=== PATIENT | female | born 1980 | race Caucasian/White ===

== ENCOUNTER → 2016-03-09 | Outpatient (CLI) | payer OTHER ==
--- NOTE | 2016-03-09 08:44 | REP ---
Transvaginal pelvic ultrasound 03/09/2016 Indication: Infertility Comparison: Transvaginal pelvic ultrasound 02/26/2016 Findings: Uterus measures 8.9 x 4.5 x 6.3 cm. Endometrium 8.9 mm thickness. There is a 1.9 mm endometrial calcification and few myometrial cysts, largest 3.8 mm maximal dimension. Uterine echotexture and endometrium are heterogeneous. Small submucosal fibroid cannot be completely excluded. There is no free fluid in cul-de-sac. Right ovary measures 2.3 x 1.3 x 1.3 cm and contains 6 sub cm follicles ranging from 1.1-2.5 mm size. Left ovary measures 2.8 x 1.7 x 1.9 cm contains a single dominant follicle greater than 10 mm size, measuring 11.1 x 8.1 mm dimension. Additionally there are two sub cm left ovarian follicles ranging from 2.3-4.1 mm size. Impression: Heterogeneous endometrium 8.9 mm in thickness. There is a 1.9 mm endometrial calcification, and few tiny myometrial cysts, largest 3.8 mm diameter. A small submucosal fibroid cannot be completely excluded as endometrium is heterogeneous with slightly indistinct margins. Single dominant left ovarian follicle measuring 11.1 x 8.1 mm size. Two sub centimeter left and six subcentimeter right ovarian follicles No free fluid in cul-de-sac Signed by Carmen Grimaldo MD 03/09/2016 08:35 A
[2016-03-09 08:45] LABS: PROGESTERONE 0.3 NG/ML
[2016-03-09 08:46] LABS: ESTRADIOL 407.8 PG/ML; LUTEINIZING HORMONE 0.5 mIU/mL
== END | disposition home or self-care (01) ==
LOC: M RAD 07:25
PROVIDERS: ATTEND Obstetrics & Gynecology Reproductive Endocrinology
DX: E28.9 Ovarian dysfunction, unspecified (principal); R93.8 Abnormal findings on diagnostic imaging of other specified body structures; N85.8 Other specified noninflammatory disorders of uterus

== ENCOUNTER → 2016-03-18 | Outpatient (CLI) | payer OTHER ==
[2016-03-18 13:28] LABS: PROGESTERONE 19.2 NG/ML
[2016-03-18 13:29] LABS: ESTRADIOL 672.2 PG/ML
== END | disposition home or self-care (01) ==
LOC: M LAB 12:15
PROVIDERS: ATTEND Obstetrics & Gynecology Reproductive Endocrinology
DX: N97.9 Female infertility, unspecified (principal)

== ENCOUNTER → 2016-03-25 | Outpatient (CLI) | payer OTHER ==
[2016-03-25 08:05] LABS: HCG, SERUM QUANTITATIVE < 1.0 MIU/ML
[2016-03-25 09:19] LABS: PROGESTERONE 41.8 NG/ML
== END | disposition home or self-care (01) ==
LOC: M LAB 07:18
PROVIDERS: ATTEND Obstetrics & Gynecology Reproductive Endocrinology
DX: Z32.00 Encounter for pregnancy test, result unknown (principal)

== ENCOUNTER → 2016-04-20 | Outpatient (CLI) | payer OTHER ==
--- NOTE | 2016-04-20 16:24 | REP ---
LEFT KNEE, FIVE VIEWS: HISTORY: Pain. There is no acute fracture or dislocation. The joint spaces are normal in appearance IMPRESSION: There is no acute fracture or dislocation. Signed by Landno Macdonald MD 04/20/2016 04:29 P
--- NOTE | 2016-04-20 16:25 | REP ---
Chest two views HISTORY: Rib sprain Comparison: None The lungs are clear. The heart is normal in size. The pulmonary vasculature is normal in appearance. The bony structure is intact. IMPRESSION: No acute disease. Signed by Landon Macdonald MD 04/20/2016 04:16 P
== END ==
LOC: M RAD 15:47
PROVIDERS: ATTEND Physician Assistant Medical
DX: M25.562 Pain in left knee (principal)

== ENCOUNTER → 2016-05-12 | Outpatient (CLI) | payer OTHER ==
--- NOTE | 2016-05-12 16:53 | REP ---
THYROID ULTRASOUND: Real-time sonographic evaluation of the thyroid was performed. Right lobe measures 3.7 x 1.4 x 1.3 cm and the left lobe 3.9 x 1.3 x 1.3 cm. Both lobes are diffusely heterogenous in echotexture. Two solid appearing nodules are seen in the right lower pole, measuring 1.4 x 0.9 x 0.8 cm and 8 x 4 x 7 mm. Solid nodule in the left lower pole measures 3 mm. Cystic structure posterior to the left lobe measures 7 x 3 x 5 mm. A few tiny calcifications are seen in the larger nodule in the right lower pole. IMPRESSION: Bilateral thyroid nodules. The dominant nodule in the right lower pole measures 1.4 x 0.9 x 0.8 cm and contains a few tiny calcifications. Recommend ultrasound guided fine-needle aspiration. Signed by Harshad Gatica MD 05/12/2016 04:57 P
== END ==
LOC: M RAD 14:47
PROVIDERS: ATTEND Physician Assistant Medical
DX: E03.9 Hypothyroidism, unspecified (principal)

== ENCOUNTER → 2016-06-03 | Outpatient (CLI) | payer OTHER ==
[2016-06-03 12:13] LABS: BASO % 0.4 % (0.0-1.0); EOS # 0.2 K/mm3 (0.0-0.50); EOS % 2.2 % (0.0-3.0); LYMPH % 32.7 % (24.0-44.0); MEAN CORPUSCULAR HEMOGLOBIN 30.2 pg (27.0-33.0); MEAN CORPUSCULAR HGB CONC 32.6 g/dl (32.0-36.5); MEAN CORPUSCULAR VOLUME 92.4 fl (80.0-96.0); MONO # 0.4 K/mm3 (0.0-0.8); MONO % 4.9 % (0.0-5.0); NEUTROPHILS # 5.3 K/mm3 (1.8-7.7); NEUTROPHILS % 58.5 % (36.0-66.0); RED CELL DISTRIBUTION WIDTH 13.2 % (11.5-14.5)
[2016-06-03 12:48] LABS: ALBUMIN 3.4 GM/DL (3.2-5.2); ALBUMIN/GLOBULIN RATIO 0.85 (1.00-1.93); ALKALINE PHOSPHATASE 119 U/L (45-117); ALT/SGPT 25 U/L (12-78); ANION GAP 5 MEQ/L (8-16); AST/SGOT 19 U/L (15-37); BILIRUBIN,TOTAL 0.6 MG/DL (0.2-1.0); BLOOD UREA NITROGEN 11 MG/DL (7-18); CALCIUM LEVEL 9.4 MG/DL (8.5-10.1); CARBON DIOXIDE LEVEL 31 MEQ/L (21-32); CHLORIDE LEVEL 103 MEQ/L (98-107); CHOLESTEROL LEVEL 200 MG/DL (<200); CREATININE FOR GFR 0.81 MG/DL (0.55-1.02); GLOMERULAR FILTRATION RATE > 60.0 (>60); GLUCOSE, FASTING 100 MG/DL (70-105); POTASSIUM SERUM 4.6 MEQ/L (3.5-5.1); SODIUM LEVEL 139 MEQ/L (136-145); TOTAL PROTEIN 7.4 GM/DL (6.4-8.2); TRIGLYCERIDES LEVEL 273 MG/DL (<150)
== END ==
LOC: M LAB 11:38
PROVIDERS: ATTEND Physician Assistant Medical
DX: I10 Essential (primary) hypertension (principal)

== ENCOUNTER → 2016-07-07 | Outpatient (REF) | payer OTHER | LOC: M LAB REF 15:51 | PROVIDERS: ATTEND Internal Medicine Endocrinology, Diabetes & Metabolism | DX: E04.1 Nontoxic single thyroid nodule (principal) ==

== ENCOUNTER → 2016-08-12 | Outpatient (CLI) | payer OTHER ==
[2016-08-12 12:01] LABS: ESTRADIOL 24.1 PG/ML; LUTEINIZING HORMONE 15.8 mIU/mL; PROGESTERONE 0.3 NG/ML
== END ==
LOC: M LAB 08:14
PROVIDERS: ATTEND Obstetrics & Gynecology Reproductive Endocrinology
DX: E28.9 Ovarian dysfunction, unspecified (principal)

== ENCOUNTER → 2016-08-12 | Outpatient (CLI) | payer OTHER ==
--- NOTE | 2016-08-12 09:12 | REP ---
Timing pelvic ultrasound, transvaginal imaging for follicle analysis: Right ovary: The right ovary is normal size measuring 1.9 and 1.4 x 2.2 cm. There are no follicles greater than 10 mm. There are three follicles in the 3-5 mm range. Left ovary: The left ovary is normal size measuring 2.0 x 1.2 x 1.4 cm. There are no follicles greater than 10 mm. There are three follicles in the 2-4 mm range. The uterus is anteverted and normal size measuring 7143 0.6 x 4.7 cm. The endometrium measures 2.3 mm with a heterogeneous appearance. There is a 4 mm endometrial cyst. A few small endometrial calcifications are noted. There is no free fluid in the pelvis. Signed by Harshad Merlos MD 08/12/2016 09:04 A
== END ==
LOC: M RAD 08:05
PROVIDERS: ATTEND Obstetrics & Gynecology Reproductive Endocrinology
DX: E28.9 Ovarian dysfunction, unspecified (principal); N85.4 Malposition of uterus; N85.8 Other specified noninflammatory disorders of uterus

== ENCOUNTER → 2016-08-15 | Outpatient (CLI) | payer OTHER ==
--- NOTE | 2016-08-15 08:55 | REP ---
TRANSVAGINAL PELVIC ULTRASOUND, FOLLICLE STUDY: Real-time sonographic evaluation of the pelvis performed utilizing transvaginal technique. The uterus measures 8.1 x 3.9 x 4.8 cm. Endometrial thickness is 10 mm. Two tiny cystic structures are again seen in the endometrium measuring approximately 3 mm in diameter. Right ovary measures 2.0 x 1.6 x 1.8 cm. There are four subcentimeter follicles between 3-5 mm in diameter with no follicles greater than 1 cm in diameter. Left ovary measures 2.1 x 1.3 x 1.6 cm with seven subcentimeter follicles up to 4 mm in diameter and no follicles greater than 1 cm in diameter. No free fluid is seen. Signed by Harshad Gatica MD 08/15/2016 05:10 P
[2016-08-15 09:25] LABS: PROGESTERONE < 0.2 NG/ML
[2016-08-15 09:26] LABS: ESTRADIOL 32.9 PG/ML; LUTEINIZING HORMONE 18.4 mIU/mL
== END ==
LOC: M RAD 08:03
PROVIDERS: ATTEND Obstetrics & Gynecology Reproductive Endocrinology
DX: E28.9 Ovarian dysfunction, unspecified (principal)

== ENCOUNTER → 2016-08-17 | Outpatient (CLI) | payer OTHER ==
[2016-08-17 11:24] LABS: PROGESTERONE 0.3 NG/ML
[2016-08-17 11:25] LABS: ESTRADIOL 61.6 PG/ML; LUTEINIZING HORMONE 11.4 mIU/mL
== END ==
LOC: M LAB 09:58
PROVIDERS: ATTEND Obstetrics & Gynecology Reproductive Endocrinology
DX: E28.9 Ovarian dysfunction, unspecified (principal)

== ENCOUNTER → 2016-08-17 | Outpatient (CLI) | payer OTHER ==
[2016-08-17 11:24] LABS: ALBUMIN 3.4 GM/DL (3.2-5.2); ALBUMIN/GLOBULIN RATIO 0.83 (1.00-1.93); ALKALINE PHOSPHATASE 117 U/L (45-117); ALT/SGPT 30 U/L (12-78); ANION GAP 5 MEQ/L (8-16); AST/SGOT 17 U/L (15-37); BASO % 0.7 % (0.0-1.0); BILIRUBIN,TOTAL 0.4 MG/DL (0.2-1.0); BLOOD UREA NITROGEN 13 MG/DL (7-18); CALCIUM LEVEL 9.1 MG/DL (8.5-10.1); CARBON DIOXIDE LEVEL 30 MEQ/L (21-32); CHLORIDE LEVEL 105 MEQ/L (98-107); CHOLESTEROL LEVEL 189 MG/DL (<200); EOS # 0.2 K/mm3 (0.0-0.50); EOS % 2.2 % (0.0-3.0); FERRITIN 35 NG/ML (8-252); GLOMERULAR FILTRATION RATE > 60.0 (>60); GLUCOSE, FASTING 124 MG/DL (70-105); LYMPH # 2.2 K/mm3 (1.5-4.5); LYMPH % 30.2 % (24.0-44.0); MEAN CORPUSCULAR HEMOGLOBIN 30.2 pg (27.0-33.0); MEAN CORPUSCULAR HGB CONC 32.8 g/dl (32.0-36.5); MEAN CORPUSCULAR VOLUME 92.2 fl (80.0-96.0); MONO # 0.3 K/mm3 (0.0-0.8); MONO % 3.9 % (0.0-5.0); NEUTROPHILS # 4.3 K/mm3 (1.8-7.7); NEUTROPHILS % 61.5 % (36.0-66.0); POTASSIUM SERUM 4.3 MEQ/L (3.5-5.1); SODIUM LEVEL 140 MEQ/L (136-145); TOTAL PROTEIN 7.5 GM/DL (6.4-8.2); TRIGLYCERIDES LEVEL 265 MG/DL (<150)
[2016-08-18 13:02] LABS: ALBUMIN 3.91 GM/DL (3.29-5.55); ALBUMIN % 52.1 % (55.8-66.1); GAMMA GLOBULIN % 17.1 % (11.1-18.8)
[2016-08-19 00:07] LABS: Lyme Disease IgG/IgM Antibodie <0.91 ISR (0.00-0.90); Lyme Disease IgM Ab Quantitati <0.80 index (0.00-0.79); SJOGREN'S ANTI SS-A <0.2 AI (0.0-0.9); SJOGREN'S ANTI SS-B <0.2 AI (0.0-0.9)
== END ==
LOC: M LAB 09:48
PROVIDERS: ATTEND Physician Assistant Medical
DX: R53.83 Other fatigue (principal); E78.2 Mixed hyperlipidemia

== ENCOUNTER → 2016-08-19 | Outpatient (REF) | payer OTHER ==
[2016-08-19 15:28] LABS: LUTEINIZING HORMONE 13.9 mIU/mL; PROGESTERONE 0.3 NG/ML
[2016-08-19 15:29] LABS: ESTRADIOL 90.5 PG/ML
== END ==
LOC: M LAB REF 14:43
PROVIDERS: ATTEND Obstetrics & Gynecology Reproductive Endocrinology
DX: E28.9 Ovarian dysfunction, unspecified (principal)

== ENCOUNTER → 2016-08-23 | Outpatient (CLI) | payer OTHER ==
--- NOTE | 2016-08-23 16:41 | REP ---
Pelvic ultrasound, endovaginal imaging: Right ovary: There are no follicles greater than 10 mm. There are five follicles in the 2.2-4.2 mm size range. Right ovary is normal size measuring 1.7 x 1.2 x 1.8 cm. There are no masses. Left ovary: There are no follicles greater than 10 mm. There are eight follicles in the 1.8-3.4 mm size range. The left ovary is normal size measuring 1.8-1.2 x 1.8 cm. There are no masses. The uterus is anteverted, however the fundus is slightly retroflexed. The uterus is normal size measuring 8.0 x 3.9 x 5.0 cm. The endometrium is not thickened measuring 9.5 mm. The endometrium has a heterogeneous echotexture and a small calcification and two small endometrial cysts are identified. Signed by Harshad Merlos MD 08/23/2016 04:33 P
[2016-08-23 17:48] LABS: ESTRADIOL 74.9 PG/ML; LUTEINIZING HORMONE 24.9 mIU/mL; PROGESTERONE 0.9 NG/ML
== END ==
LOC: M RAD 16:00 → M LAB 16:00
PROVIDERS: ATTEND Obstetrics & Gynecology Reproductive Endocrinology
DX: E28.9 Ovarian dysfunction, unspecified (principal); N85.8 Other specified noninflammatory disorders of uterus; N85.4 Malposition of uterus

== ENCOUNTER → 2016-09-09 | Outpatient (CLI) | payer OTHER ==
--- NOTE | 2016-09-09 08:53 | REP ---
Clinical: Infertility. Technique: Transvaginal ultrasound examination. Findings: Heterogeneous anteverted uterus measures 8.3 x 4.2 x 5.2 cm and again demonstrates multiple small myometrial cysts measuring up to 5 mm diameter. Trace endocervical fluid is identified. No pelvic free fluid or adnexal mass lesion. Right ovary measures 2.1 x 1.4 x 2.2 cm with three subcentimeter follicles. Left ovary measures 2.2 x 2.7 x 2.6 cm three sub centimeter follicles. Impression: Heterogeneous anteverted uterus with small cysts. No free fluid or adnexal mass lesion. Few subcentimeter bilateral follicles. Signed by Juliocesar Laurent MD 09/09/2016 08:44 A
[2016-09-09 10:29] LABS: ESTRADIOL 202.4 PG/ML; LUTEINIZING HORMONE 8.8 mIU/mL; PROGESTERONE 0.4 NG/ML
== END ==
LOC: M LAB 07:21 → M RAD 07:21
PROVIDERS: ATTEND Obstetrics & Gynecology Reproductive Endocrinology
DX: E28.9 Ovarian dysfunction, unspecified (principal); N85.4 Malposition of uterus; N85.8 Other specified noninflammatory disorders of uterus

== ENCOUNTER → 2016-09-13 | Outpatient (CLI) | payer OTHER ==
[2016-09-13 17:12] LABS: ESTRADIOL 68.1 PG/ML; LUTEINIZING HORMONE 6.1 mIU/mL; PROGESTERONE 0.2 NG/ML
--- NOTE | 2016-09-13 18:08 | REP ---
HISTORY: Fertility scan. Transvaginal ultrasonography was performed. The uterus measures 8.3 x 3.9 x 4.8 cm. The endometrial echo complex measures 1.4 cm in thickness. The right ovary measures 2.6 x 1.7 x 1.6 cm. There are two follicles in the 5.2 to 5.3 mm range. The left ovary measures 2.1 x 1.8 x 2 cm. There is one follicle measuring 7.3 mm. IMPRESSION: Ovarian follicle study as described above. Signed by Usman Shankar DO 09/13/2016 06:28 P
== END ==
LOC: M LAB 16:07 → M RAD 16:07
PROVIDERS: ATTEND Obstetrics & Gynecology Reproductive Endocrinology
DX: E28.9 Ovarian dysfunction, unspecified (principal)

== ENCOUNTER → 2016-09-23 | Outpatient (CLI) | payer OTHER ==
--- NOTE | 2016-09-23 08:42 | REP ---
Obstetric ultrasound, transvaginal imaging for follicle analysis: Right ovary: There is one follicle greater than 10 mm measuring up to 11.9 mm. There is There is one follicle measuring 3.9 mm. The right ovary is normal size measuring 2.4 x 1.6 x 2.4 cm. Left ovary There is one follicle greater than 10 mm measuring up to 19.7 mm. There is one follicle measuring 4.8 mm. Left ovary is normal size measuring 2.7 x 2.3 x 2.7 cm. The uterus is anteverted and normal size measuring 8.73 0.7 x 5.0 cm. There is a subserosal/submucosal fibroid in the anterior myometrium measuring 2.2 x 1.9 x 1.8 cm. The endometrium has a uniformly echogenic appearance and is not trilaminar. Signed by Harshad Merlos MD 09/23/2016 08:34 A
[2016-09-23 09:13] LABS: HCG, SERUM QUANTITATIVE < 1.0 MIU/ML
[2016-09-23 09:21] LABS: PROGESTERONE 0.3 NG/ML
[2016-09-23 09:22] LABS: LUTEINIZING HORMONE 6.5 mIU/mL
[2016-09-23 09:23] LABS: ESTRADIOL 53.9 PG/ML; FOLLICLE STIMULATING HORMONE 10.9 mIU/mL
== END ==
LOC: M RAD 07:28
PROVIDERS: ATTEND Obstetrics & Gynecology Reproductive Endocrinology
DX: N97.9 Female infertility, unspecified (principal)

== ENCOUNTER → 2016-10-07 | Outpatient (CLI) | payer OTHER ==
[2016-10-07 11:39] LABS: ESTRADIOL 429.7 PG/ML; LUTEINIZING HORMONE 4.1 mIU/mL; PROGESTERONE 3.5 NG/ML
== END ==
LOC: M LAB 10:20
PROVIDERS: ATTEND Obstetrics & Gynecology Reproductive Endocrinology
DX: N97.9 Female infertility, unspecified (principal)

== ENCOUNTER → 2016-10-21 | Outpatient (CLI) | payer OTHER ==
[2016-10-21 12:32] LABS: ALBUMIN 3.3 GM/DL (3.2-5.2); ALBUMIN/GLOBULIN RATIO 0.94 (1.00-1.93); ALKALINE PHOSPHATASE 96 U/L (45-117); ALT/SGPT 34 U/L (12-78); ANION GAP 7 MEQ/L (8-16); AST/SGOT 17 U/L (15-37); BILIRUBIN,TOTAL 0.5 MG/DL (0.2-1.0); BLOOD UREA NITROGEN 10 MG/DL (7-18); CALCIUM LEVEL 8.7 MG/DL (8.5-10.1); CARBON DIOXIDE LEVEL 28 MEQ/L (21-32); CHLORIDE LEVEL 107 MEQ/L (98-107); CHOLESTEROL LEVEL 160 MG/DL (<200); CREATININE FOR GFR 0.76 MG/DL (0.55-1.02); GLOMERULAR FILTRATION RATE > 60.0 (>60); GLUCOSE, FASTING 101 MG/DL (70-105); IMMUNOGLOBULIN G 1100 MG/DL (681-1648); IMMUNOGLOBULIN M 112 MG/DL (40-230); POTASSIUM SERUM 4.3 MEQ/L (3.5-5.1); SODIUM LEVEL 142 MEQ/L (136-145); TOTAL PROTEIN 6.8 GM/DL (6.4-8.2); TRIGLYCERIDES LEVEL 188 MG/DL (<150)
== END ==
LOC: M LAB 09:37
PROVIDERS: ATTEND Physician Assistant Medical
DX: L94.9 Localized connective tissue disorder, unspecified (principal); R73.9 Hyperglycemia, unspecified; E78.2 Mixed hyperlipidemia

== ENCOUNTER → 2016-11-01 | Outpatient (CLI) | payer OTHER ==
[2016-11-01 10:06] LABS: ESTRADIOL 324.8 PG/ML
== END ==
LOC: M LAB 06:39
PROVIDERS: ATTEND Obstetrics & Gynecology Reproductive Endocrinology
DX: N97.9 Female infertility, unspecified (principal)

== ENCOUNTER → 2016-11-07 | Outpatient (CLI) | payer OTHER ==
[2016-11-07 08:56] LABS: HCG, SERUM QUANTITATIVE < 1.0 MIU/ML
[2016-11-07 09:07] LABS: PROGESTERONE 36.9 NG/ML
== END ==
LOC: M LAB 06:34
PROVIDERS: ATTEND Obstetrics & Gynecology Reproductive Endocrinology
DX: N97.9 Female infertility, unspecified (principal)

== ENCOUNTER → 2017-02-22 | Outpatient (CLI) | payer OTHER, SELFPAY ==
[2017-02-22 09:19] LABS: BASO % 0.4 % (0.0-1.0); EOS # 0.1 10^3/uL (0.0-0.50); EOS % 1.8 % (0.0-3.0); IMMATURE GRANULOCYTE % 0.4 % (0-0); LYMPH # 2.2 10^3/uL (1.5-4.5); LYMPH % 28.5 % (24.0-44.0); MEAN CORPUSCULAR HGB CONC 33.2 g/dl (32.0-36.5); MEAN CORPUSCULAR VOLUME 90.3 fl (80.0-96.0); MONO # 0.5 10^3/uL (0.0-0.8); MONO % 6.5 % (0.0-5.0); NEUTROPHILS # 4.7 10^3/uL (1.8-7.7); NEUTROPHILS % 62.4 % (36.0-66.0); PLATELET COUNT, AUTOMATED 338 10^3/uL (150-450); RED CELL DISTRIBUTION WIDTH 13.2 % (11.5-14.5); WHITE BLOOD COUNT 7.6 10^3/uL (4.0-10.0)
[2017-02-22 10:12] LABS: ALBUMIN 3.3 GM/DL (3.2-5.2); ALBUMIN/GLOBULIN RATIO 0.83 (1.00-1.93); ALKALINE PHOSPHATASE 119 U/L (45-117); ALT/SGPT 29 U/L (12-78); ANION GAP 6 MEQ/L (8-16); AST/SGOT 18 U/L (7-37); BILIRUBIN,TOTAL 0.5 MG/DL (0.2-1.0); BLOOD UREA NITROGEN 11 MG/DL (7-18); CALCIUM LEVEL 8.7 MG/DL (8.5-10.1); CARBON DIOXIDE LEVEL 28 MEQ/L (21-32); CHLORIDE LEVEL 104 MEQ/L (98-107); CHOLESTEROL LEVEL 146 MG/DL (<200); CREATININE FOR GFR 0.72 MG/DL (0.55-1.02); GLOMERULAR FILTRATION RATE > 60.0 (>60); GLUCOSE, FASTING 115 MG/DL (70-105); GLUCOSE,RANDOM 115 MG/DL (LESS THAN 200); POTASSIUM SERUM 4.3 MEQ/L (3.5-5.1); SODIUM LEVEL 138 MEQ/L (136-145); TOTAL PROTEIN 7.3 GM/DL (6.4-8.2); TRIGLYCERIDES LEVEL 275 MG/DL (<150)
== END ==
LOC: M LAB 08:47
PROVIDERS: ATTEND Physician Assistant Medical
DX: R73.9 Hyperglycemia, unspecified (principal)

== ENCOUNTER 2017-07-20 19:10 | Emergency (ER) | payer SELFPAY ==
[2017-07-20] MEDS: AMOXICILLIN 500 MG CAP PO (19:54)
== END 2017-07-20 20:05 | disposition home or self-care (01) ==
LOC: M ED 19:10
DX: H66.91 Otitis media, unspecified, right ear (principal); K21.9 Gastro-esophageal reflux disease without esophagitis; E07.9 Disorder of thyroid, unspecified; Z79.899 Other long term (current) drug therapy; Z79.890 Hormone replacement therapy; F17.210 Nicotine dependence, cigarettes, uncomplicated
CPT/HCPCS: 99283

== ENCOUNTER → 2017-12-19 | Outpatient (REF) | payer OTHER, MEDICAID ==
[2017-12-19 23:22] LABS: CHLAMYDIA DNA AMPLIFICATION NEGATIVE (NEGATIVE); GC DNA AMPLIFICATION NEGATIVE (NEGATIVE)
[2017-12-20 10:21] LABS: HIV 1&2 SCREEN CENTAUR NEGATIVE (NEGATIVE)
[2017-12-22 14:21] LABS: HPV LOW VOL RFLX Negative (Negative)
== END ==
LOC: M LAB REF 18:52
DX: Z01.419 Encounter for gynecological examination (general) (routine) without abnormal findings (principal); Z11.3 Encounter for screening for infections with a predominantly sexual mode of transmission; Z11.51 Encounter for screening for human papillomavirus (HPV)
CPT/HCPCS: 86780

== ENCOUNTER → 2018-10-19 | Outpatient (REF) | payer OTHER ==
[~2018-10-19] MED LIST: AMOX500C PO; IBUP-1022 PO; LEVO125T4 PO; METHY25TA PO; OMEP40CA2 PO; VITA50005 PO
== END ==
LOC: M LAB REF 12:49
PROVIDERS: ATTEND Physician Assistant Medical
DX: R30.0 Dysuria (principal)

== ENCOUNTER → 2018-11-21 | Outpatient (REF) | payer OTHER ==
[~2018-11-21] MED LIST changes: -OMEP40CA2 PO; +OMEP40CA97 PO
[2018-11-21 11:09] LABS: BASO # 0.1 10^3/uL (0.0-0.2); BASO % 0.7 % (0.0-1.0); EOS # 0.2 10^3/uL (0.0-0.5); EOS % 1.8 % (0.0-3.0); HEMATOCRIT 48.6 % (36.0-47.0); HEMOGLOBIN 15.6 g/dl (12.0-15.5); LYMPH # 3.1 10^3/uL (1.5-5.0); LYMPH % 29.7 % (24.0-44.0); MEAN CORPUSCULAR HEMOGLOBIN 30.7 pg (27.0-33.0); MEAN CORPUSCULAR HGB CONC 32.1 g/dl (32.0-36.5); MEAN CORPUSCULAR VOLUME 95.7 fl (80.0-96.0); MONO # 0.5 10^3/uL (0.0-0.8); MONO % 5.1 % (0.0-5.0); NEUTROPHILS # 6.4 10^3/uL (1.5-8.5); NEUTROPHILS % 62.1 % (36.0-66.0); PLATELET COUNT, AUTOMATED 323 10^3/uL (150-450); RED BLOOD COUNT 5.08 10^6/uL (4.00-5.40); WHITE BLOOD COUNT 10.4 10^3/uL (4.0-10.0)
[2018-11-21 11:28] LABS: ALBUMIN 3.4 GM/DL (3.2-5.2); ALT/SGPT 23 U/L (12-78); BILIRUBIN,TOTAL 0.5 MG/DL (0.2-1.0); BLOOD UREA NITROGEN 9 MG/DL (7-18); CALCIUM LEVEL 9.3 MG/DL (8.5-10.1); CARBON DIOXIDE LEVEL 27 MEQ/L (21-32); CHLORIDE LEVEL 105 MEQ/L (98-107); CHOLESTEROL LEVEL 189 MG/DL (<200); CHOLESTEROL RISK RATIO 4.725 (<5); CREATININE FOR GFR 0.76 MG/DL (0.55-1.30); FREE T4 1.14 NG/DL (0.76-1.46); GLOMERULAR FILTRATION RATE > 60.0 (>60); GLUCOSE, FASTING 93 MG/DL (70-100); HDL CHOLESTEROL 40 MG/DL (>40); LDL CHOLESTEROL 110 MG/DL (<100); NON-HDL-C 149 MG/DL; POTASSIUM SERUM 4.7 MEQ/L (3.5-5.1); SODIUM LEVEL 139 MEQ/L (136-145); TOTAL 25(OH) VITAMIN D 64.4 NG/ML (30.0-100.0); TOTAL PROTEIN 7.1 GM/DL (6.4-8.2); TRIGLYCERIDES LEVEL 196 MG/DL (<150)
[2018-11-21 11:33] LABS: HEMOGLOBIN A1c 6.3 %
== END ==
LOC: M LAB REF 10:59
PROVIDERS: ATTEND Nurse Practitioner Family
DX: Z00.00 Encounter for general adult medical examination without abnormal findings (principal)

== ENCOUNTER → 2019-07-03 | Outpatient (CLI) | payer OTHER ==
[2019-07-03 14:30] LABS: HEMATOCRIT 45.3 % (36.0-47.0); MEAN CORPUSCULAR HEMOGLOBIN 31.6 pg (27.0-33.0); MEAN CORPUSCULAR HGB CONC 33.1 g/dl (32.0-36.5); MEAN CORPUSCULAR VOLUME 95.6 fl (80.0-96.0); PLATELET COUNT, AUTOMATED 360 10^3/uL (150-450); RED BLOOD COUNT 4.74 10^6/uL (4.00-5.40); WHITE BLOOD COUNT 7.2 10^3/uL (4.0-10.0)
[2019-07-03 14:45] LABS: FREE T4 1.47 NG/DL (0.76-1.46); THYROID STIMULATING HORMONE 0.579 uIU/ML (0.358-3.740)
== END ==
LOC: M PLALAB 10:22
PROVIDERS: ATTEND Obstetrics & Gynecology
DX: N93.9 Abnormal uterine and vaginal bleeding, unspecified (principal)

== ENCOUNTER → 2019-07-11 | Outpatient (CLI) | payer OTHER ==
--- NOTE | 2019-07-11 19:10 | REP ---
Clinical: Abnormal uterine bleeding. Technique: Transabdominal pelvic ultrasound followed by transvaginal examination for better evaluation of the endometrium and adnexa. Note: Examination is limited due to under distended bladder, excessive overlying bowel gas, and patient body habitus. Findings: Heterogeneous anteverted uterus measures 8.1 x 3.6 x 4.8 cm. Endometrial complex measures 7.9 mm thickness. A 1.6 cm presumed fibroid is suggested in the lower uterine segment. A complex cyst is noted in the fundal portion of the endometrium measuring 8 x 9 x 9 mm. Left ovary is normal and measures 1.7 x 1.3 x 1.0 cm. The right ovary measures 2.4 x 1.6 x 1.7 cm and includes 1.2 x 1.7 x 1.2 cm presumed physiologic cyst. No pelvic fluid or adnexal mass lesion. Impression: Heterogeneous uterus with presumed lower uterine segment fibroid and complex cyst within the fundal portion of the endometrium. Right ovarian cyst likely physiologic. Consider reevaluation in 4-6 weeks to evaluate for resolution.
== END ==
LOC: M WHC 14:02
PROVIDERS: ATTEND Obstetrics & Gynecology
DX: N85.8 Other specified noninflammatory disorders of uterus (principal); N83.291 Other ovarian cyst, right side; N93.9 Abnormal uterine and vaginal bleeding, unspecified

== ENCOUNTER → 2019-07-24 | Outpatient (REF) | payer OTHER, MEDICAID ==
[2019-07-24 13:14] LABS: BASO % 0.4 % (0.0-1.0); EOS # 0.2 10^3/uL (0.0-0.5); EOS % 1.6 % (0.0-3.0); HEMATOCRIT 45.2 % (36.0-47.0); HEMOGLOBIN 14.4 g/dl (12.0-15.5); LYMPH # 3.2 10^3/uL (1.5-5.0); LYMPH % 33.9 % (24.0-44.0); MEAN CORPUSCULAR HEMOGLOBIN 30.8 pg (27.0-33.0); MEAN CORPUSCULAR HGB CONC 31.9 g/dl (32.0-36.5); MEAN CORPUSCULAR VOLUME 96.8 fl (80.0-96.0); MONO # 0.7 10^3/uL (0.0-0.8); MONO % 7.1 % (0.0-5.0); NEUTROPHILS # 5.3 10^3/uL (1.5-8.5); NEUTROPHILS % 56.7 % (36.0-66.0); PLATELET COUNT, AUTOMATED 315 10^3/uL (150-450); RED BLOOD COUNT 4.67 10^6/uL (4.00-5.40); WHITE BLOOD COUNT 9.3 10^3/uL (4.0-10.0)
[2019-07-24 13:47] LABS: ALBUMIN 3.7 GM/DL (3.2-5.2); ALT/SGPT 25 U/L (12-78); BILIRUBIN,TOTAL 0.3 MG/DL (0.2-1.0); BLOOD UREA NITROGEN 16 MG/DL (7-18); CARBON DIOXIDE LEVEL 27 MEQ/L (21-32); CHLORIDE LEVEL 107 MEQ/L (98-107); CHOLESTEROL LEVEL 179 MG/DL (<200); CHOLESTEROL RISK RATIO 5.264 (<5); CREATININE FOR GFR 0.91 MG/DL (0.55-1.30); FREE T4 1.36 NG/DL (0.76-1.46); GLOMERULAR FILTRATION RATE > 60.0 (>60); GLUCOSE, FASTING 107 MG/DL (70-100); HDL CHOLESTEROL 34 MG/DL (>40); LDL CHOLESTEROL 98 MG/DL (<100); NON-HDL-C 145 MG/DL; POTASSIUM SERUM 4.2 MEQ/L (3.5-5.1); SODIUM LEVEL 141 MEQ/L (136-145); TOTAL PROTEIN 7.5 GM/DL (6.4-8.2); TRIGLYCERIDES LEVEL 236 MG/DL (<150)
[2019-07-24 13:48] LABS: TOTAL 25(OH) VITAMIN D 48.8 NG/ML (30.0-100.0)
[2019-07-24 13:54] LABS: HEMOGLOBIN A1c 6.9 %
== END ==
LOC: M LAB REF 12:56
PROVIDERS: ATTEND Family Medicine
DX: Z00.00 Encounter for general adult medical examination without abnormal findings (principal); E03.9 Hypothyroidism, unspecified; E78.00 Pure hypercholesterolemia, unspecified; R73.03 Prediabetes; I10 Essential (primary) hypertension

== ENCOUNTER → 2019-07-30 | Outpatient (REF) | payer OTHER, MEDICAID | LOC: M SFHCWAGY 09:39 | PROVIDERS: ATTEND Obstetrics & Gynecology | DX: N93.9 Abnormal uterine and vaginal bleeding, unspecified (principal) ==

== ENCOUNTER → 2019-09-30 | Outpatient (CLI) | payer OTHER ==
[~2019-09-30] MED LIST changes: +ATOR1TAB19 PO; +LISI10TA4 PO; +METF500T13 PO; +OXYB5TAB10 PO; +WELLTAB38 PO
--- NOTE | 2019-11-22 09:22 | ECGEPIP ---
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
== END ==
LOC: M EKG 11:41
PROVIDERS: ATTEND Anesthesiology
DX: Z01.818 Encounter for other preprocedural examination (principal); I10 Essential (primary) hypertension; E11.9 Type 2 diabetes mellitus without complications; G47.30 Sleep apnea, unspecified

== ENCOUNTER → 2020-03-16 | Outpatient (REF) | payer OTHER, MEDICAID ==
[2020-03-16 12:59] LABS: ALBUMIN 3.7 GM/DL (3.2-5.2); ALT/SGPT 23 U/L (12-78); BILIRUBIN,TOTAL 0.5 MG/DL (0.2-1.0); BLOOD UREA NITROGEN 13 MG/DL (7-18); CALCIUM LEVEL 9.6 MG/DL (8.5-10.1); CARBON DIOXIDE LEVEL 28 MEQ/L (21-32); CHLORIDE LEVEL 102 MEQ/L (98-107); CREATININE FOR GFR 0.92 MG/DL (0.55-1.30); GLOMERULAR FILTRATION RATE > 60.0 (>58); GLUCOSE, FASTING 140 MG/DL (70-100); POTASSIUM SERUM 4.9 MEQ/L (3.5-5.1); SODIUM LEVEL 138 MEQ/L (136-145); TOTAL PROTEIN 7.6 GM/DL (6.4-8.2)
[2020-03-16 15:14] LABS: HEMOGLOBIN A1c 7.2 %
== END ==
LOC: M LAB REF 11:11
PROVIDERS: ATTEND Physician Assistant
DX: E11.9 Type 2 diabetes mellitus without complications (principal); E78.00 Pure hypercholesterolemia, unspecified

== ENCOUNTER → 2020-03-24 | Outpatient (CLI) | payer SELFPAY ==
[~2020-03-24] MED LIST changes: +LISI10TA22 PO; -LISI10TA4 PO
== END ==
LOC: M LABSMTC 10:58
PROVIDERS: ATTEND Pediatrics
DX: Z20.822 Contact with and (suspected) exposure to COVID-19 (principal)

== ENCOUNTER → 2020-04-20 | Outpatient (CLI) | payer SELFPAY | LOC: M LABSMTC 12:07 | PROVIDERS: ATTEND Pediatrics | DX: Z20.822 Contact with and (suspected) exposure to COVID-19 (principal) ==

== ENCOUNTER → 2020-04-29 | Outpatient (CLI) | payer SELFPAY | LOC: M LABSMTC 10:24 | PROVIDERS: ATTEND Pediatrics | DX: Z20.822 Contact with and (suspected) exposure to COVID-19 (principal) ==

== ENCOUNTER → 2020-05-01 | Outpatient (REF) | LOC: M LABSMTC 11:58 | PROVIDERS: ATTEND Pediatrics | DX: Z11.52 Encounter for screening for COVID-19 (principal) ==

== ENCOUNTER → 2020-05-21 | Outpatient (REF) | payer OTHER, MEDICAID ==
[2020-05-21 11:34] LABS: BASO # 0.1 10^3/uL (0.0-0.2); BASO % 0.6 % (0.0-1.0); EOS # 0.1 10^3/uL (0.0-0.5); EOS % 1.7 % (0.0-3.0); HEMATOCRIT 43.3 % (36.0-47.0); HEMOGLOBIN 13.6 g/dl (12.0-15.5); LYMPH # 2.9 10^3/uL (1.5-5.0); LYMPH % 34.7 % (24.0-44.0); MEAN CORPUSCULAR HEMOGLOBIN 29.2 pg (27.0-33.0); MEAN CORPUSCULAR HGB CONC 31.4 g/dl (32.0-36.5); MEAN CORPUSCULAR VOLUME 93.1 fl (80.0-96.0); MONO # 0.6 10^3/uL (0.0-0.8); MONO % 7.3 % (2.0-8.0); NEUTROPHILS # 4.6 10^3/uL (1.5-8.5); NEUTROPHILS % 55.5 % (36.0-66.0); PLATELET COUNT, AUTOMATED 329 10^3/uL (150-450); RED BLOOD COUNT 4.65 10^6/uL (4.00-5.40); WHITE BLOOD COUNT 8.3 10^3/uL (4.0-10.0)
[2020-05-21 12:14] LABS: CHOLESTEROL RISK RATIO 4.823 (<5); FREE T4 1.23 NG/DL (0.76-1.46); THYROID STIMULATING HORMONE 1.83 uIU/ML (0.358-3.740)
== END ==
LOC: M LAB REF 10:56
PROVIDERS: ATTEND Physician Assistant
DX: R42 Dizziness and giddiness (principal); R74.8 Abnormal levels of other serum enzymes

== ENCOUNTER → 2020-05-25 | Outpatient (REF) | payer OTHER, MEDICAID ==
[2020-05-25 16:21] LABS: ALBUMIN 3.8 GM/DL (3.2-5.2); ALT/SGPT 26 U/L (12-78); BILIRUBIN,TOTAL 0.4 MG/DL (0.2-1.0); BLOOD UREA NITROGEN 13 MG/DL (7-18); CALCIUM LEVEL 9.9 MG/DL (8.5-10.1); CARBON DIOXIDE LEVEL 32 MEQ/L (21-32); CHLORIDE LEVEL 104 MEQ/L (98-107); CREATININE FOR GFR 0.81 MG/DL (0.55-1.30); GLOMERULAR FILTRATION RATE > 60.0 (>58); GLUCOSE, FASTING 171 MG/DL (70-100); POTASSIUM SERUM 4.6 MEQ/L (3.5-5.1); SODIUM LEVEL 139 MEQ/L (136-145); TOTAL PROTEIN 7.7 GM/DL (6.4-8.2)
[2020-05-25 16:29] LABS: TOTAL 25(OH) VITAMIN D 37.1 NG/ML (30.0-100.0)
[2020-05-25 17:04] LABS: MALB URINE SIEMENS 27.5 MG/L; MAU/CREAT RATIO 10.7 MCG/MG (0.0-30.0)
[2020-05-25 18:07] LABS: HEMOGLOBIN A1c 7.7 %
== END ==
LOC: M LAB REF 15:44
PROVIDERS: ATTEND Physician Assistant
DX: E11.9 Type 2 diabetes mellitus without complications (principal); E66.9 Obesity, unspecified

== ENCOUNTER → 2021-05-28 | Outpatient (CLI) | payer MEDICAID, OTHER ==
[~2021-05-28] MED LIST changes: +OMEP40CA4 PO; -OMEP40CA97 PO
[2021-05-28 09:53] LABS: HEMOGLOBIN 14.6 g/dl (12.0-15.5); MEAN CORPUSCULAR HEMOGLOBIN 29.4 pg (27.0-33.0); MEAN CORPUSCULAR HGB CONC 32.4 g/dl (32.0-36.5); MEAN CORPUSCULAR VOLUME 90.5 fl (80.0-96.0); PLATELET COUNT, AUTOMATED 337 10^3/uL (150-450); RED BLOOD COUNT 4.97 10^6/uL (4.00-5.40)
[2021-05-28 10:23] LABS: ALBUMIN 3.6 GM/DL (3.2-5.2); ALT/SGPT 34 U/L (12-78); BILIRUBIN,TOTAL 0.5 MG/DL (0.2-1.0); BLOOD UREA NITROGEN 15 MG/DL (7-18); CALCIUM LEVEL 9.5 MG/DL (8.5-10.1); CARBON DIOXIDE LEVEL 32 MEQ/L (21-32); CHLORIDE LEVEL 101 MEQ/L (98-107); CHOLESTEROL LEVEL 142 MG/DL (<200); CHOLESTEROL RISK RATIO 3.641 (<5); CREATININE FOR GFR 0.94 MG/DL (0.55-1.30); GLOMERULAR FILTRATION RATE > 60.0 (>58); GLUCOSE, FASTING 250 MG/DL (70-100); HDL CHOLESTEROL 39 MG/DL (>40); LDL CHOLESTEROL 65 MG/DL (<100); NON-HDL-C 103 MG/DL; POTASSIUM SERUM 4.3 MEQ/L (3.5-5.1); SODIUM LEVEL 136 MEQ/L (136-145); TOTAL PROTEIN 7.6 GM/DL (6.4-8.2); TRIGLYCERIDES LEVEL 189 MG/DL (<150)
[2021-05-28 10:56] LABS: HEMOGLOBIN A1c 10.7 %
[2021-05-28 11:57] LABS: HEPATITIS C VIRUS ABY INDEX 0.2 INDEX (<0.8)
[2021-05-28 11:58] LABS: HIV 1&2 SCREEN CENTAUR NEGATIVE (NEGATIVE)
== END ==
LOC: M LAB 09:12
PROVIDERS: ATTEND Physician Assistant
DX: Z11.59 Encounter for screening for other viral diseases (principal)

== ENCOUNTER → 2021-06-08 | Outpatient (REF) ==
[2021-06-08 12:29] LABS: RSV AMPLIFICATION NEGATIVE (NEGATIVE)
== END ==
LOC: M EMP 11:36
PROVIDERS: ATTEND Family Medicine
DX: Z11.52 Encounter for screening for COVID-19 (principal)

== ENCOUNTER → 2021-11-14 | Outpatient (REF) | LOC: M LABSMTC 10:00 | PROVIDERS: ATTEND Pediatrics | DX: Z00.00 Encounter for general adult medical examination without abnormal findings (principal) ==

== ENCOUNTER 2021-12-31 21:46 | Emergency (ER) | payer OTHER ==
[~2021-12-31] VITALS: Ht 160 cm; Wt 100.9 kg
[2022-01-01] MEDS ORDERED: LIDOCAINE 5% (LIDODERM) PATCH TD ONE (00:20)
[2022-01-01] MEDS ORDERED: traMADol 50 MG TAB PO ONE (00:20)
[2022-01-01] MEDS ORDERED: TRAM50TA2 PO (00:22)
[2022-01-01] MEDS ORDERED: CYCL5TAB PO (00:22)
[2022-01-01] MEDS ORDERED: LIDO5DIS41 TD (00:22)
[2022-01-01 00:33] VITALS: BP 138/88
== END 2022-01-01 00:35 | disposition home or self-care (01) ==
LOC: M ED 21:46
DX: R07.89 Other chest pain (principal); E11.9 Type 2 diabetes mellitus without complications; E03.9 Hypothyroidism, unspecified; E78.5 Hyperlipidemia, unspecified; F32.A Depression, unspecified; K21.9 Gastro-esophageal reflux disease without esophagitis; Z79.899 Other long term (current) drug therapy; Z79.84 Long term (current) use of oral hypoglycemic drugs

== ENCOUNTER → 2022-01-06 | Outpatient (CLI) | payer OTHER ==
[~2022-01-06] MED LIST changes: +CYCL5TAB PO; +LIDO5DIS41 TD; +TRAM50TA2 PO
== END ==
LOC: M WHC 10:50
PROVIDERS: ATTEND Physician Assistant
DX: R92.2 Inconclusive mammogram (principal); R92.8 Other abnormal and inconclusive findings on diagnostic imaging of breast

== ENCOUNTER 2022-01-22 13:42 | Emergency (ER) | payer OTHER ==
[~2022-01-22] VITALS: Ht 160 cm; Wt 100.0 kg
[2022-01-22] MEDS ORDERED: CYCLOBENZAPRINE 10MG TABLET PO ONE (17:30)
[2022-01-22] MEDS ORDERED: KETOROLAC TROMETHAMINE 10 MG TAB PO ONE (17:30)
[2022-01-22] MEDS ORDERED: IBUP80TA PO (17:41)
[2022-01-22] MEDS ORDERED: CYCL-707 PO (17:41)
[2022-01-22 18:08] VITALS: BP 142/94
== END 2022-01-22 18:27 | disposition home or self-care (01) ==
LOC: M ED 17:20
DX: S29.011A Strain of muscle and tendon of front wall of thorax, initial encounter (principal); W00.0XXA Fall on same level due to ice and snow, initial encounter; E03.9 Hypothyroidism, unspecified; I10 Essential (primary) hypertension; K21.9 Gastro-esophageal reflux disease without esophagitis; F17.200 Nicotine dependence, unspecified, uncomplicated; Z79.890 Hormone replacement therapy; Z79.899 Other long term (current) drug therapy

== ENCOUNTER → 2022-01-26 | Outpatient (REF) ==
[~2022-01-26] MED LIST changes: +CYCL-707 PO; +IBUP80TA PO
[2022-01-26 13:16] LABS: RSV AMPLIFICATION NEGATIVE (NEGATIVE)
== END ==
LOC: M LABSMTC 11:18
PROVIDERS: ATTEND Family Medicine
DX: Z11.52 Encounter for screening for COVID-19 (principal)

== ENCOUNTER → 2022-02-03 | Outpatient (REF) | payer OTHER ==
[2022-02-03 16:44] LABS: APPEARANCE, URINE MANUAL CLEAR (CLEAR); COLOR, URINE MANUAL YELLOW (YELLOW)
[2022-02-03 16:46] LABS: BILIRUBIN, URINE MANUAL NEGATIVE (NEGATIVE); BLOOD URINE MANUAL NEGATIVE (NEGATIVE); GLUCOSE, URINE (UA) MANUAL NEGATIVE (NEGATIVE); KETONE, URINE MANUAL NEGATIVE (NEGATIVE); LEUKOCYTE ESTERASE, URINE MAN TRACE (NEGATIVE); NITRITE, URINE MANUAL NEGATIVE (NEGATIVE); PROTEIN, URINE MANUAL NEGATIVE (NEGATIVE); SPECIFIC GRAVITY,URINE MANUAL 1.025 (1.002-1.035); UROBILINOGEN, URINE MANUAL NORMAL (NORMAL)
[2022-02-03 17:24] LABS: BACTERIA, URINE SMALL AMOUNT; SQUAMOUS EPITHELIAL CELL URINE LARGE AMOUNT /hpf (SMALL AMT)
[2022-02-03 17:25] LABS: HYALINE CAST, URINE NONE SEEN /lpf (0-1); MUCUS, URINE LARGE AMOUNT (NEGATIVE)
== END ==
LOC: M LAB REF 16:32
PROVIDERS: ATTEND Physician Assistant
DX: N39.0 Urinary tract infection, site not specified (principal)

== ENCOUNTER → 2022-04-27 | Outpatient (REF) ==
[2022-04-27 13:31] LABS: RSV AMPLIFICATION NEGATIVE (NEGATIVE)
== END ==
LOC: M LABSMTC 09:18
PROVIDERS: ATTEND Family Medicine
DX: Z11.59 Encounter for screening for other viral diseases (principal)

== ENCOUNTER → 2022-05-05 | Outpatient (REF) | payer OTHER ==
[2022-05-05 16:58] LABS: CREATININE, URINE 144.4 MG/DL; MAU/CREAT RATIO 5.5 MCG/MG (0.0-30.0)
== END ==
LOC: M LAB REF 16:10
PROVIDERS: ATTEND Physician Assistant
DX: E11.65 Type 2 diabetes mellitus with hyperglycemia (principal)

== ENCOUNTER → 2022-06-29 | Outpatient (CLI) | payer OTHER ==
[2022-06-29 11:34] LABS: BLOOD UREA NITROGEN 12 MG/DL (9-23); CALCIUM LEVEL 9.9 MG/DL (8.5-10.1); CARBON DIOXIDE LEVEL 30 MMOL/L (20-31); CHLORIDE LEVEL 102 MMOL/L (98-107); CHOLESTEROL LEVEL 117 MG/DL (<200); CHOLESTEROL RISK RATIO 2.77 (<5); CREATININE FOR GFR 0.84 MG/DL (0.55-1.30); GLOMERULAR FILTRATION RATE > 60.0 (>58); GLUCOSE, FASTING 97 MG/DL (60-100); HDL CHOLESTEROL 42.2 MG/DL (>40); NON-HDL-C 74.8 MG/DL; POTASSIUM SERUM 4.1 MMOL/L (3.5-5.1); SODIUM LEVEL 137 MMOL/L (136-145); TRIGLYCERIDES LEVEL 144 MG/DL (<150)
[2022-06-29 11:35] LABS: THYROID STIMULATING HORMONE 0.665 uIU/ML (0.55-4.78)
== END ==
LOC: M LAB 10:01
PROVIDERS: ATTEND Physician Assistant
DX: E03.9 Hypothyroidism, unspecified (principal); E78.00 Pure hypercholesterolemia, unspecified; E11.65 Type 2 diabetes mellitus with hyperglycemia

== ENCOUNTER → 2022-07-27 | Outpatient (REF) | payer OTHER | LOC: M LAB REF 22:15 | PROVIDERS: ATTEND Physician Assistant | DX: J02.9 Acute pharyngitis, unspecified (principal) ==

== ENCOUNTER → 2022-09-14 | Outpatient (CLI) | payer OTHER | LOC: M WHC 09:07 | PROVIDERS: ATTEND Physician Assistant | DX: Z12.31 Encounter for screening mammogram for malignant neoplasm of breast (principal) ==

== ENCOUNTER → 2023-04-18 | Outpatient (CLI) | payer OTHER ==
[~2023-04-18] MED LIST changes: -OXYB5TAB10 PO; +OXYB5TAB11 PO
[2023-04-18 09:50] LABS: BLOOD UREA NITROGEN 11 MG/DL (9-23); CALCIUM LEVEL 9.4 MG/DL (8.5-10.1); CARBON DIOXIDE LEVEL 29 MMOL/L (20-31); CHLORIDE LEVEL 104 MMOL/L (98-107); CHOLESTEROL LEVEL 117 MG/DL (<200); CHOLESTEROL RISK RATIO 2.83 (<5); CREATININE FOR GFR 0.61 MG/DL (0.55-1.30); GLOMERULAR FILTRATION RATE > 60.0 (>58); GLUCOSE, FASTING 124 MG/DL (60-100); HDL CHOLESTEROL 41.3 MG/DL (>40); LDL CHOLESTEROL 48.7 MG/DL (<100); NON-HDL-C 75.7 MG/DL; SODIUM LEVEL 137 MMOL/L (136-145); TRIGLYCERIDES LEVEL 135 MG/DL (<150)
[2023-04-18 09:54] LABS: THYROID STIMULATING HORMONE 0.748 uIU/ML (0.55-4.78)
== END ==
LOC: M LAB 08:22
PROVIDERS: ATTEND Physician Assistant
DX: E03.9 Hypothyroidism, unspecified (principal)

== ENCOUNTER → 2023-06-23 | Outpatient (REF) ==
[~2023-06-23] MED LIST changes: -OXYB5TAB11 PO; +OXYB5TAB14 PO
== END ==
LOC: M EMP 14:25
PROVIDERS: ATTEND Family Medicine
DX: Z01.89 Encounter for other specified special examinations (principal)

== ENCOUNTER → 2023-08-31 | Outpatient (CLI) | payer OTHER | LOC: M WHC 07:56 | PROVIDERS: ATTEND Physician Assistant | DX: Z12.31 Encounter for screening mammogram for malignant neoplasm of breast (principal) ==

== ENCOUNTER → 2023-11-20 | Outpatient (REF) | payer OTHER ==
[2023-11-20 17:25] LABS: CREATININE, URINE 189.4 MG/DL; MAU/CREAT RATIO 2.6 MCG/MG (0.0-30.0)
== END ==
LOC: M LAB REF 16:26
PROVIDERS: ATTEND Physician Assistant
DX: E11.65 Type 2 diabetes mellitus with hyperglycemia (principal)

== ENCOUNTER → 2024-01-18 | Outpatient (REF) | payer OTHER ==
[~2024-01-18] MED LIST changes: -CYCL5TAB PO; +CYCL5TAB4 PO
[2024-01-18 17:36] LABS: APPEARANCE, URINE HAZY (CLEAR); BACTERIA, URINE AUTO 1+ (NEGATIVE); BILIRUBIN, URINE AUTO NEGATIVE (NEGATIVE); BLOOD, URINE BLOOD 2+ (NEGATIVE); COLOR, URINE YELLOW (YELLOW); GLUCOSE, URINE (UA) AUTO NEGATIVE (NEGATIVE); KETONE, URINE AUTO NEGATIVE (NEGATIVE); LEUKOCYTE ESTERASE, URINE AUTO 3+ (NEGATIVE); NITRITE, URINE AUTO NEGATIVE (NEGATIVE); PROTEIN, URINE AUTO NEGATIVE (NEGATIVE); RBC, URINE AUTO 7 /HPF (0-3); SPECIFIC GRAVITY URINE AUTO 1.006 (1.002-1.035); SQUAMOUS EPITHELIAL CELL UR AU 1 /HPF (0-6); UROBILINOGEN, URINE AUTO 0.2 mg/dL (0.0-2.0); WBC, URINE AUTO 149 /HPF (0-3)
== END ==
LOC: M LAB REF 16:43
PROVIDERS: ATTEND Physician Assistant Medical
DX: N39.0 Urinary tract infection, site not specified (principal)

== ENCOUNTER 2024-02-02 09:39 | Emergency (ER) | payer OTHER ==
[~2024-02-02] VITALS: Ht 160 cm; Wt 93.5 kg
[2024-02-02 11:08] VITALS: BP 114/77; TEMP 97.1; O2SAT 96
== END 2024-02-02 11:35 | disposition home or self-care (01) ==
LOC: M ED 09:39
DX: Z11.1 Encounter for screening for respiratory tuberculosis (principal); K21.9 Gastro-esophageal reflux disease without esophagitis; E03.9 Hypothyroidism, unspecified; Z79.1 Long term (current) use of non-steroidal anti-inflammatories (NSAID); Z79.84 Long term (current) use of oral hypoglycemic drugs; Z79.899 Other long term (current) drug therapy

== ENCOUNTER → 2024-02-13 | Outpatient (REF) | payer OTHER, MEDICAID ==
[2024-02-21 12:56] LABS: HPV APTIMA NOT DETECTED (NOT DETECT)
== END ==
LOC: M LAB REF 17:06
PROVIDERS: ATTEND Physician Assistant
DX: Z12.4 Encounter for screening for malignant neoplasm of cervix (principal); Z11.3 Encounter for screening for infections with a predominantly sexual mode of transmission

== ENCOUNTER → 2024-09-20 | Outpatient (REF) | payer OTHER, MEDICAID ==
[~2024-09-20] MED LIST changes: +LIDO1ADH93 TD; -LIDO5DIS41 TD
== END ==
LOC: M LAB REF 16:57
PROVIDERS: ATTEND Nurse Practitioner Family
DX: Z53.9 Procedure and treatment not carried out, unspecified reason (principal)

== ENCOUNTER → 2024-09-24 | Outpatient (REF) | payer OTHER, MEDICAID ==
[2024-09-24 18:39] LABS: CREATININE, URINE 105.5 MG/DL
[2024-09-24 18:40] LABS: MALB URINE SIEMENS < 3.0 MG/L
[2024-09-24 18:48] LABS: PLATELET COUNT, AUTOMATED 321 10^3/uL (150-450)
[2024-09-24 18:53] LABS: FREE T4 1.37 NG/DL (0.89-1.76)
[2024-09-24 18:55] LABS: ALT/SGPT 22 U/L (7.0-40); AST/SGOT 22 U/L (<34); CALCIUM LEVEL 10.0 MG/DL (8.5-10.1); CARBON DIOXIDE LEVEL 26 MMOL/L (20-31); CHLORIDE LEVEL 105 MMOL/L (98-107); CHOLESTEROL LEVEL 116 MG/DL (<200); CHOLESTEROL RISK RATIO 2.67 (<5); CREATININE FOR GFR 0.79 MG/DL (0.55-1.30); GLOMERULAR FILTRATION RATE > 90.0 (>58); LDL CHOLESTEROL 38.5 MG/DL (<100); MAGNESIUM LEVEL 1.9 MG/DL (1.8-2.4); NON-HDL-C 72.7 MG/DL; POTASSIUM SERUM 4.5 MMOL/L (3.5-5.1); SODIUM LEVEL 142 MMOL/L (136-145); TRIGLYCERIDES LEVEL 171 MG/DL (<150)
== END ==
LOC: M LAB REF 16:59
PROVIDERS: ATTEND Nurse Practitioner Family
DX: E11.9 Type 2 diabetes mellitus without complications (principal); I10 Essential (primary) hypertension; I71.20 Thoracic aortic aneurysm, without rupture, unspecified; I51.7 Cardiomegaly; E78.00 Pure hypercholesterolemia, unspecified; E03.9 Hypothyroidism, unspecified

== ENCOUNTER → 2024-12-20 | Outpatient (CLI) | payer OTHER ==
[~2024-12-20] MED LIST changes: -IBUP-1022 PO; +IBUP600T42 PO
== END ==
LOC: M RAD 10:54
PROVIDERS: ATTEND Nurse Practitioner Family
DX: M79.644 Pain in right finger(s) (principal)